=== PATIENT | male | born 1960 | race Caucasian/White ===

== ENCOUNTER 2018-02-07 21:43 | Emergency (ER) | payer OTHER ==
[2018-02-07 22:33] LABS: ABS Basophils 0.1 10^3/ul (0-0.2); ABS Eosinophils 0.1 10^3/ul (0-0.6); ABS Lymphocytes 2.6 10^3/ul (1.0-4.8); ABS Monocytes 0.8 10^3/ul (0-0.8); ABS Neutrophils 3.7 10^3/ul (1.5-7.7); ABS Nucleated RBC 0 10^3/ul; Eosinophil % 1.5 % (0-6); Hematocrit 47 % (42-52); Hemoglobin 15.7 g/dl (14.0-18.0); Lymphocyte % 36.5 % (25-47); Mean Corpuscular HGB Conc 34 g/dl (31-36); Mean Corpuscular Hemoglobin 31 pg (27-31); Mean Corpuscular Volume 93 fL (80-94); Mean Platelet Volume 7.7 um3 (7.4-10.4); Nucleated Red Blood Cells % 0; Platelet Count 277 10^3/ul (150-450); Red Blood Count 5.02 10^6/ul (4.0-5.4); Red Cell Distribution Width 15 % (10.5-15); White Blood Count 7.2 10^3/ul (3.5-10.8)
[2018-02-07 22:51] LABS: EGFR Non-African American 105.3 (>60)
[2018-02-07] MEDS ORDERED: Potassium Chlor TAB* 20 MEQ TAB.ER PO ONE (23:16)
[2018-02-07] MEDS ORDERED: Haloperidol INJ IV/IM* 5 MG/ML AMP IM ONE (23:17)
[2018-02-07] MEDS ORDERED: diPHENhydraMINE IV* 50 MG/ML 1 ml VIAL (BENADRYL) IM ONE (23:17)
[2018-02-07] MEDS ORDERED: LORazepam INJ* 2 MG/ML 1 ML VIAL IM ONE (23:18)
--- NOTE | 2018-02-08 06:50 | ED ---
Terrell Prescott Angela, scribed for Usha English MD on 02/07/18 at 2232 . Substance Abuse/Use - HPI Summary HPI Summary: This pt is a 57 y/o male presenting to [facility] via traffic police officer for alcohol intoxication. armored vehicle officer states she was called by the pt's brother due to pt drinking excessive amounts of alcohol. Pt notes he has been drinking a lot today. Pt states his has 2 weeks ago. He reports he wants to . Per nurse's note pt reports he took all his oxycodone 3 days ago in attempt to kill himself. HPI IS LIMITED DUE TO LEVEL 5 CAVEAT - pt is intoxicated. - History Of Current Complaint Stated Complaint: 2208 Time Seen by Provider: 02/07/18 21:54 Hx Obtained From: Patient Hx From Patient Unobtainable Due To: Other - Level 5 caveat - pt is intoxicated Onset/Duration of Drug/ETOH Abuse: Hours Ingestion History: Type/Name Of Drug - alcohol, Amount Ingested - unknown Overdose Characteristics: Oral Timing Of Abuse: Binge Use Severity Currently: Severe Character: Depressed, Stuporous Aggravating Factor(s): Recent Stress - recently Alleviating Factor(s): Nothing Associated Signs And Symptoms: Intentional Ingestion Related Hx: Suicidal: Thoughts - Allergies/Home Medications Allergies/Adverse Reactions: Allergies Allergy/AdvReac Type Severity Reaction Status Date / Time No Known Allergies Allergy Verified 01/05/15 14:33 Home Medications: Home Medications Unobtainable [Unobtainable] 02/07/18 [History Confirmed 02/07/18] PMH/Surg Hx/FS Hx/Imm Hx Endocrine/Hematology History: Denies: Hx Diabetes Cardiovascular History: Denies: Hx Hypertension, Hx Pacemaker/ICD History: Denies: Hx Renal Disease Sensory History: Denies: Hx Hearing Aid Psychiatric History: Denies: Hx Panic Disorder - Surgical History Surgery Procedure, Year, and Place: HEMORRHOIDHERNIALt EYE - 5 SURGERIES - FROM INJURY - NEEDS PRE MRI ORBITS- UNSURE OF METAL Infectious Disease History: No Infectious Disease History: Denies: Traveled Outside the [place] in Last 30 Days - Family History Known Family History: Positive: Unknown - due to level 5 caveat - pt is intoxicated - Social History Alcohol Use: Daily Alcohol Amount: "a couple" Substance Use Type: Reports: None Hx Tobacco Use: Yes Smoking Status (MU): Heavy Every Day Tobacco Smoker Review of Systems - ROS Summary Review of Systems Summary: ROS IS LIMITED DUE TO LEVEL 5 CAVEAT - pt is intoxicated Negative: Fever, Chills Psychological: Other - SI thoughts Positive: Depressed All Other Systems Reviewed And Are Negative: No Physical Exam - Summary Physical Exam Summary: VITAL SIGNS: Reviewed. GENERAL: Patient is a well-developed and nourished male who is lying comfortable in the stretcher. Patient is not in any acute respiratory distress. HEAD AND FACE: No signs of trauma. No ecchymosis, hematomas or skull depressions. No sinus tenderness. EYES: PERRLA, EOMI x 2, No injected conjunctiva, no nystagmus. EARS: Hearing grossly intact. Ear canals and tympanic membranes are within normal limits. MOUTH: Oropharynx within normal limits. NECK: Supple, trachea is midline, no adenopathy, no JVD, no carotid bruit, no c- spine tenderness, neck with full ROM. CHEST: Symmetric, no tenderness at palpation LUNGS: Clear to auscultation bilaterally. No wheezing or crackles. CVS: Regular rate and rhythm, S1 and S2 present, no murmurs or gallops appreciated. ABDOMEN: Soft, non-tender. No signs of distention. No rebound no guarding, and no masses palpated. Bowel sounds are normal. EXTREMITIES: FROM in all major joints, no edema, no cyanosis. Pt has clubbing of his fingers. NEURO: Alert and oriented x3, however he is somewhat slow. Pt seems to be intoxicated. SKIN: Dry and warm Triage Information Reviewed: Yes Vital Signs On Initial Exam: Initial Vitals Temp Pulse Resp BP Pulse Ox 98.7 F 89 18 162/80 97 02/07/18 21:52 02/07/18 21:52 02/07/18 21:52 02/07/18 21:52 02/07/18 21:52 Vital Signs Reviewed: Yes Diagnostics - Vital Signs Vital Signs Temp Pulse Resp BP Pulse Ox 02/07/18 22:07 77 94 02/07/18 22:04 76 134/72 94 02/07/18 21:52 98.7 F 89 18 162/80 97 - Laboratory Result Diagrams: 02/07/18 22:14 02/07/18 22:14 Lab Statement: Any lab studies that have been ordered have been reviewed, and results considered in the medical decision making process. Re-Evaluation - Re-Evaluation First Eval Re-Evaluation Time: 23:15 Comment: Pt became aggressive. He is yelling at the ED staff and is attempting to leave. Course/Dx - Course Assessment/Plan: Pt is a 57 y/o male who presents with alcohol intoxication. armored vehicle officer states she was called by the pt's brother due to pt drinking excessive amounts of alcohol. Pt notes he has been drinking a lot today. Pt states his has 2 weeks ago. He reports he wants to . Test results show potassium of 3.2, for which the pt was give potassium chloride. Serum alcohol is 368. Pt was given Benadryl, Haldol, Ativan. Pt has not been medically cleared for MHE, he is awaiting alcohol metabolism. He will be signed out to Dr. Barillas, pending disposition, awaiting alcohol metabolism and subsequent MHE. - Diagnoses Provider Diagnoses: Alcohol intoxication Discharge - Sign-Out/Discharge Documenting (check all that apply): Sign-Out Patient Signing out patient TO: Margarito Barillas - pending dispo, awaiting EtOH metabolism and MHE - Discharge Plan Condition: Stable Referrals: Hubert Camilo MD [Primary Care Provider] - The documentation as recorded by the Terrell narayanan Angela accurately reflects the service I personally performed and the decisions made by me, Usha English MD.
[2018-02-08 10:58] VITALS: BP 118/73
--- NOTE | 2018-02-08 18:51 | ED ---
I, [facility], noed for Margarito Barillas MD on 02/08/18 at 0825 . Progress - Progress Note Progress Note: This pt is a sign out from Dr. English at shift change pending alcohol metabolism and MHE. Re-Evaluation - Re-Evaluation First Eval Re-Evaluation Time: 23:15 Comment: Pt became aggressive. He is yelling at the ED staff and is attempting to leave. Course/Dx - Course Course Of Treatment: This pt is a sign out from Dr. English at shift change pending alcohol metabolism and MHE. At 10:33, the pt was discharged by Dr. Lozano. - Diagnoses Provider Diagnoses: Alcohol intoxication Discharge - Sign-Out/Discharge Documenting (check all that apply): Discharge/Admit/Transfer - Discharge - Discharge Plan Condition: Stable Disposition: HOME Patient Education Materials: Alcohol Intoxication (ED), Abuse of Alcohol (ED) Referrals: Hubert Camilo MD [Primary Care Provider] - 3 Days Additional Instructions: Return to the ED for new or worsening symptoms. The documentation as recorded by the Harsh narayanan Stephanie accurately reflects the service I personally performed and the decisions made by , Margarito Barillas MD.
== END 2018-02-08 11:08 | disposition home or self-care (01) ==
LOC: ED 21:43
DX: F10.129 Alcohol abuse with intoxication, unspecified (principal); Z72.0 Tobacco use
CPT/HCPCS: 36415; 80053; 80320; 80329; 84443; 85025; 96372; 99283; A9270-GY; G0480; J1200; J1630; J2060